=== PATIENT | male | born 1985 | race African-American/Black ===

== ENCOUNTER 2021-04-23 14:24 | Emergency (ER) | payer MEDICAID ==
[~2021-04-23] VITALS: Ht 185.4 cm; Wt 84.0 kg
[2021-04-23] MEDS ORDERED: DEXAMETHASONE 4MG TABLET PO ONE (15:15)
[2021-04-23] MEDS ORDERED: IPRATROPIUM/ALBUTEROL 0.5-3(2.5)MG/3ML NEB HHN ONE (15:15)
[2021-04-23] MEDS ORDERED: ALBU18HF2 IH (15:16)
[2021-04-23] MEDS ORDERED: MED4 MT (15:16)
[2021-04-23] MEDS ORDERED: DOXY100C2 MT (15:16)
[2021-04-23 15:55] VITALS: BP 123/61
== END 2021-04-23 15:56 | disposition home or self-care (01) ==
LOC: ER 14:24
DX: J45.901 Unspecified asthma with (acute) exacerbation (principal); Z76.0 Encounter for issue of repeat prescription; Z87.828 Personal history of other (healed) physical injury and trauma
CPT/HCPCS: 71045; 94640; 99283; J8540; Z7610